=== PATIENT | male | born 1975 | race Caucasian/White ===

== ENCOUNTER 2019-05-27 08:14 | Emergency (ER) | payer OTHER ==
[2019-05-27] MEDS ORDERED: Sodium Chloride 0.9% 2.5 ML Syringe FLUSH PRN (08:27)
[2019-05-27] MEDS ORDERED: Sodium Chloride 0.9% 10 ML Syringe FLUSH PRN (08:27)
[2019-05-27] MEDS ORDERED: Sodium Chloride 0.9% 1,000 ML IV ONE ×2 (08:27→09:50)
--- NOTE | 2019-05-27 08:32 | EDM.PDOC ---
ED HPI GENERAL MEDICAL PROBLEM - General Chief Complaint: Behavioral/Psych Stated Complaint: nausea, vomiting Time Seen by Provider: 05/27/19 08:30 - History of Present Illness INITIAL COMMENTS - FREE TEXT/NARRATIVE: 43 y/o male here complaining of nausea, vomiting and muscle spasms. Patient states he woke up this morning with some nausea, vomiting and muscle cramps. He called EMS. States he drank 8 fireballs last night. Denies illicit drug use. No chest pain, dyspnea, dysuria, diarrhea, blood in stool. Endorses some mild abdominal pain. States he has history of anxiety and he took Xanax 0.5 mg once this morning. - Related Data Allergies Allergy/AdvReac Type Severity Reaction Status Date / Time No Known Allergies Allergy Verified 05/27/19 08:25 Home Meds: Home Meds . [No Known Home Meds] 05/27/19 [History] Past Medical History Psychiatric History: Reports: Anxiety, Panic Attack - Infectious Disease History Infectious Disease History: Reports: None - Past Surgical History HEENT Surgical History: Reports: Other (See Below) Other HEENT Surgeries/Procedures: jaw surgery Social & Family History - Family History Family Medical History: Noncontributory - Tobacco Use Smoking Status *Q: Never Smoker - Recreational Drug Use Recreational Drug Use: No ED ROS GENERAL - Review of Systems Review Of Systems: ROS reveals no pertinent complaints other than HPI. ED EXAM, GI/ABD - Physical Exam Exam: See Below General Appearance: Alert, WD/WN, No Apparent Distress Throat/Mouth: Other (dry mucous membranes) Head: Atraumatic, Normocephalic Neck: Supple, Non-Tender Respiratory/Chest: No Respiratory Distress, Lungs Clear Cardiovascular: Normal Peripheral Pulses, Regular Rate, Rhythm, No Edema GI/Abdominal Exam: Normal Bowel Sounds, Soft, Non-Tender, No Distention Back Exam: Normal Inspection, Full Range of Motion Extremities: Normal Inspection, No Pedal Edema Neurological: Alert, Oriented, CN II-XII Intact Skin Exam: Warm, Dry Course - Vital Signs Text/Narrative:: labs unremarkable. Some mild leukocytosis attributed to dehydration. No fevers. Bolused NS 1 L x2. Feeling better after IV hydration. Last Recorded V/S: Last Vital Signs Temp 36.0 C 05/27/19 08:19 Pulse 108 H 05/27/19 09:55 Resp 18 05/27/19 09:55 BP 172/79 H 05/27/19 08:19 Pulse Ox 99 05/27/19 09:55 - Orders/Labs/Meds Orders: Active Orders 24 hr Category Date Time Status EKG Documentation Completion [RC] STAT Care 05/27/19 08:39 Inactive Sodium Chloride 0.9% [Normal Saline] 1,000 ml Med 05/27/19 09:50 Active IV STAT Sodium Chloride 0.9% [Saline Flush] Med 05/27/19 08:27 Active 10 ml FLUSH ASDIRECTED PRN Sodium Chloride 0.9% [Saline Flush] Med 05/27/19 08:27 Active 2.5 ml FLUSH ASDIRECTED PRN Saline Lock Insert [OM.PC] Stat Oth 05/27/19 08:27 Ordered Medication Orders Sodium Chloride (Normal Saline) 1,000 mls @ 999 mls/hr IV STAT ONE Stop: 05/27/19 10:50 Last Admin: 05/27/19 09:53 Dose: 999 mls/hr Sodium Chloride (Saline Flush) 10 ml FLUSH ASDIRECTED PRN PRN Reason: Keep Vein Open Last Admin: 05/27/19 08:50 Dose: 10 ml Sodium Chloride (Saline Flush) 2.5 ml FLUSH ASDIRECTED PRN PRN Reason: Keep Vein Open Last Admin: 05/27/19 08:50 Dose: 2.5 ml Labs: Laboratory Tests 05/27/19 05/27/19 05/27/19 Range/Units 08:45 08:45 09:21 WBC 16.61 H (4.0-11.0) K/uL RBC 5.45 (4.50-5.90) M/uL Hgb 17.6 H (13.0-17.0) g/dL Hct 49.3 (38.0-50.0) % MCV 90.5 (80.0-98.0) fL MCH 32.3 H (27.0-32.0) pg MCHC 35.7 (31.0-37.0) g/dL RDW Std Deviation 41.7 (28.0-62.0) fl RDW Coeff of Salome 13 (11.0-15.0) % Plt Count 367 (150-400) K/uL MPV 10.00 (7.40-12.00) fL Neut % (Auto) 65.1 (48.0-80.0) % Lymph % (Auto) 25.5 (16.0-40.0) % [place] % (Auto) 8.9 (0.0-15.0) % Eos % (Auto) 0.2 (0.0-7.0) % Baso % (Auto) 0.3 (0.0-1.5) % Neut # (Auto) 10.8 H (1.4-5.7) K/uL Lymph # (Auto) 4.2 H (0.6-2.4) K/uL [place] # (Auto) 1.5 H (0.0-0.8) K/uL Eos # (Auto) 0.0 (0.0-0.7) K/uL Baso # (Auto) 0.1 (0.0-0.1) K/uL Nucleated RBC % 0.0 /100WBC Nucleated RBCs # 0 K/uL Sodium 141 (136-148) mmol/L Potassium 3.1 L (3.5-5.1) mmol/L Chloride 98 (98-107) mmol/L Carbon Dioxide 20.6 L (21.0-32.0) mmol/L BUN 9 (7.0-18.0) mg/dL Creatinine 1.5 H (0.8-1.3) mg/dL Est Cr Clr Drug Dosing 69.03 mL/min Estimated GFR (MDRD) 51.6 ml/min Glucose 150 H (74-106) mg/dL Calcium 9.2 (8.5-10.1) mg/dL Total Bilirubin 1.1 H (0.2-1.0) mg/dL AST 52 H (15-37) IU/L ALT 79 H (14-63) IU/L Alkaline Phosphatase 112 (46-116) U/L Creatine Kinase 154 (26-308) U/L Total Protein 8.5 H (6.4-8.2) g/dL Albumin 4.1 (3.4-5.0) g/dL Globulin 4.4 H (2.6-4.0) g/dL Albumin/Globulin Ratio 0.9 (0.9-1.6) Lipase 96 (73-393) U/L TSH 3rd Generation 5.53 H (0.36-3.74) uIU/mL Urine Opiates Screen NEGATIVE (NEGATIVE) Ur Oxycodone Screen NEGATIVE (NEGATIVE) Urine Methadone Screen NEGATIVE (NEGATIVE) Ur Barbiturates Screen NEGATIVE (NEGATIVE) Ur Phencyclidine Scrn NEGATIVE (NEGATIVE) Ur Amphetamine Screen NEGATIVE (NEGATIVE) U Methamphetamines Scrn NEGATIVE (NEGATIVE) U Benzodiazepines Scrn NEGATIVE (NEGATIVE) U Cocaine Metab Screen NEGATIVE (NEGATIVE) U Marijuana (THC) Screen NEGATIVE (NEGATIVE) Ethyl Alcohol 24 mg/dL Meds: Medications Generic Name Dose Route Start Last Admin Trade Name Freq PRN Reason Stop Dose Admin Sodium Chloride 1,000 mls @ 999 mls/hr 05/27/19 09:50 05/27/19 09:53 Normal Saline IV 05/27/19 10:50 999 mls/hr STAT ONE Administration Sodium Chloride 10 ml 05/27/19 08:27 05/27/19 08:50 Saline Flush FLUSH 10 ml ASDIRECTED PRN Administration Keep Vein Open Sodium Chloride 2.5 ml 05/27/19 08:27 05/27/19 08:50 Saline Flush FLUSH 2.5 ml ASDIRECTED PRN Administration Keep Vein Open Discontinued Medications Generic Name Dose Route Start Last Admin Trade Name Freq PRN Reason Stop Dose Admin Sodium Chloride 1,000 mls @ 999 mls/hr 05/27/19 08:27 05/27/19 08:48 Normal Saline IV 05/27/19 09:27 999 mls/hr STAT ONE Administration Lorazepam 1 mg 05/27/19 08:39 05/27/19 08:48 Ativan IVPUSH 05/27/19 08:40 1 mg ONETIME ONE Administration Departure - Departure Time of Disposition: 10:50 Disposition: Home, Self-Care 01 Clinical Impression: Anxiety, Dehydration - Discharge Information *PRESCRIPTION DRUG MONITORING PROGRAM REVIEWED*: Not Applicable *COPY OF PRESCRIPTION DRUG MONITORING REPORT IN PATIENT KAYLA: Not Applicable Forms: ED Department Discharge Additional Instructions: The following information is given to patients seen in the emergency department who are being discharged to home. This information is to outline your options for follow-up care. We provide all patients seen in our emergency department with a follow-up referral. The need for follow-up, as well as the timing and circumstances, are variable depending upon the specifics of your emergency department visit. If you don't have a primary care physician on staff, we will provide you with a referral. We always advise you to contact your personal physician following an emergency department visit to inform them of the circumstance of the visit and for follow-up with them and/or the need for any referrals to a consulting specialist. The emergency department will also refer you to a specialist when appropriate. This referral assures that you have the opportunity for follow-up care with a specialist. All of these measure are taken in an effort to provide you with optimal care, which includes your follow-up. Under all circumstances we always encourage you to contact your private physician who remains a resource for coordinating your care. When calling for follow-up care, please make the office aware that this follow-up is from your recent emergency room visit. If for any reason you are refused follow-up, please contact the [facility] Emergency Department at and asked to speak to the emergency department charge nurse. Stay hydrated. Avoid any alcohol and mood altering substances. Follow-up with your PCP in 1-2 weeks. - My Orders Last 24 Hours: My Active Orders 05/27/19 08:27 Sodium Chloride 0.9% [Saline Flush] 10 ml FLUSH ASDIRECTED PRN Sodium Chloride 0.9% [Saline Flush] 2.5 ml FLUSH ASDIRECTED PRN Saline Lock Insert [OM.PC] Stat 05/27/19 08:39 EKG Documentation Completion [RC] STAT 05/27/19 09:50 Sodium Chloride 0.9% [Normal Saline] 1,000 ml IV STAT - Assessment/Plan Last 24 Hours: My Active Orders 05/27/19 08:27 Sodium Chloride 0.9% [Saline Flush] 10 ml FLUSH ASDIRECTED PRN Sodium Chloride 0.9% [Saline Flush] 2.5 ml FLUSH ASDIRECTED PRN Saline Lock Insert [OM.PC] Stat 05/27/19 08:39 EKG Documentation Completion [RC] STAT 05/27/19 09:50 Sodium Chloride 0.9% [Normal Saline] 1,000 ml IV STAT
[2019-05-27] MEDS ORDERED: LORazepam 2 MG/ML SDV IVPUSH ONE (08:39)
== END 2019-05-27 11:00 | disposition home or self-care (01) ==
LOC: MW.ED 08:14
DX: E86.0 Dehydration (principal); F41.9 Anxiety disorder, unspecified
CPT/HCPCS: 36415; 80053; 80305; 82550; 83690; 84443; 85025; 96361; 96374; 99284; G0480; J2060; J7040; 99283